=== PATIENT | male | born 1930 | race Caucasian/White ===

== ENCOUNTER → 2017-01-15 | Outpatient (REF) ==
[~2017-01-15] MED LIST: AMOXICILLIN 8751 TAB PO; ASPI325T6 PO; CLEOCIN HC150 MG/CAP PO; COLACE 100100 MG/CAP PO; CYTOMEL 5MC5 MCG/TAB PO; D2 PO; D3-5050000 IU PO; DEPO-TESTOS100 MG/ML IM; ELIQUIS 5MG PO; EXCEDRIN TENSIO1 CAP PO; FLOMAX 0.40.4 MG/CAP PO; LASIX 20MG TABL20 MG PO; LEVAQUIN 5500 MG/TA1 PO; LEVOXYL0.175 MG PO; MULTAQ400 MG PO; MULTI VITAMINS1 TAB PO; NATURAL VITAM1000 MG PO; NORCO 325 MG-51 TAB PO; PRILOSEC 20MG20 MG PO; PYRIDIUM 100MG100 MG PO; SLOW-MAG 106 MG1 ECT PO; SLOW-MAG 6464 MG/TAB PO; SLOW-MAG535 MG PO; SYNTHROID 0.10.15 MG PO; SYNTHROID0.175 MG PO; THE MEDICINE S200 M2 PO; THORAZINE 225 MG/TAB PO; TYLENOL 325MG325 MG PO; TYLENOL ARTHRI650 M1 PO; VITAMIN C500 MG PO; [UNRECOGNIZED DRUG - OTHER] PO; [UNRECOGNIZED DRUG - OTHER] PO
[2017-01-15 12:29] LABS: PSA-TOTAL 2.79 ng/mL (0-4)
== END ==
LOC: ZLAB.WCH 10:31
PROVIDERS: Internal Medicine
DX: Z01.89 Encounter for other specified special examinations (principal)
CPT/HCPCS: G0103

== ENCOUNTER 2017-02-18 23:05 | Inpatient (IN) | payer MEDICARE, BC ==
[~2017-02-18] VITALS: Ht 185.4 cm; Wt 98.3 kg
[~2017-02-18 23:05] MED LIST changes: -AMOXICILLIN 8751 TAB PO; -ASPI325T6 PO; -CLEOCIN HC150 MG/CAP PO; -COLACE 100100 MG/CAP PO; -CYTOMEL 5MC5 MCG/TAB PO; -ELIQUIS 5MG PO; -FLOMAX 0.40.4 MG/CAP PO; -LASIX 20MG TABL20 MG PO; -MULTAQ400 MG PO; -NATURAL VITAM1000 MG PO; -NORCO 325 MG-51 TAB PO; -PYRIDIUM 100MG100 MG PO; -SLOW-MAG 6464 MG/TAB PO; -SYNTHROID 0.10.15 MG PO; -SYNTHROID0.175 MG PO; -THE MEDICINE S200 M2 PO; -THORAZINE 225 MG/TAB PO; -TYLENOL 325MG325 MG PO; -[UNRECOGNIZED DRUG - OTHER] PO; -[UNRECOGNIZED DRUG - OTHER] PO
[2017-02-18] MEDS ORDERED: CYTOMEL 5MC5 MCG/TAB PO (23:14)
[2017-02-18] MEDS ORDERED: SYNTHROID0.175 MG PO (23:14)
[2017-02-18] MEDS ORDERED: SLOW-MAG 6464 MG/TAB PO (23:14)
[2017-02-18 23:25] LABS: BASO # 0.1 (0.0-0.2); BASO % 0.3 % (0.0-2.0); GRAN # 16.1 (1.4-6.5); GRAN % 89.2 % (42.2-75.2); HEMATOCRIT 48.8 % (42.0-52.0); HEMOGLOBIN 16.6 g/dl (13.5-18.0); LYMPH # 0.9 (1.2-3.4); LYMPH % 4.7 % (20.0-51.0); MEAN CELL VOLUME 91 fl (80.0-100.0); MEAN CORPUSCULAR HEMOGLOBIN 31 pg (27.0-31.0); MEAN CORPUSCULAR HGB CONC 34 g/dl (33.0-37.0); MONO % 5.3 % (1.7-9.3); PLATELET COUNT 214 K/mm3 (130-400); RED BLOOD COUNT 5.38 M/mm3 (4.20-5.60); REDCELL DISTRIBUTION WIDTH-CV 13.7 % (11.5-14.5)
[2017-02-18 23:35] LABS: ADJUSTED CALCIUM 8.9 mg/dL (8.4-10.2); ALBUMIN 3.6 gm/dL (3.5-5.0); BILIRUBIN,TOTAL 2.5 mg/dL (0.0-1.0); CALCIUM 8.6 mg/dL (8.4-10.2); CREATININE, serum 0.95 mg/dL (0.66-1.25); POTASSIUM 4.1 mmol/L (3.4-5.0); TOTAL PROTEIN 6.2 gm/dL (6.4-8.2)
[2017-02-19 00:33] LABS: PH 5 (5-8); SQUAMOUS EPITHELIAL None Seen /hpf; URINE APPEARANCE Clear; URINE BACTERIA None Seen /hpf; URINE BILIRUBIN Negative (NEGATIVE); URINE BLOOD 3+ (NEGATIVE); URINE COLOR Amber; URINE GLUCOSE 3+ (NEGATIVE); URINE KETONE 1+ (NEGATIVE); URINE UROBILINOGEN >=4.0 mg/dL (NEGATIVE); URINE WBC 0-2 /hpf
[2017-02-19 03:41] VITALS: BP 122/60; PULSE 93; TEMP 97.8
[2017-02-19 07:22] VITALS: BP 124/57; PULSE 73; TEMP 98.4
[2017-02-19 08:47] LABS: BASO % 0.2 % (0.0-2.0); EOS % 0.2 % (0-4.0); GRAN # 10.2 (1.4-6.5); GRAN % 82.2 % (42.2-75.2); HEMATOCRIT 43.7 % (42.0-52.0); LYMPH # 1.3 (1.2-3.4); LYMPH % 10.6 % (20.0-51.0); MEAN CELL VOLUME 92 fl (80.0-100.0); MEAN CORPUSCULAR HEMOGLOBIN 30 pg (27.0-31.0); MEAN CORPUSCULAR HGB CONC 33 g/dl (33.0-37.0); MEAN PLATELET VOLUME 9.5 fl (7.4-10.4); MONO # 0.8 (0.1-0.6); MONO % 6.2 % (1.7-9.3); PLATELET COUNT 177 K/mm3 (130-400); RED BLOOD COUNT 4.76 M/mm3 (4.20-5.60); REDCELL DISTRIBUTION WIDTH-CV 13.9 % (11.5-14.5); WHITE BLOOD COUNT 12.4 K/mm3 (4.8-10.8)
[2017-02-19 08:49] LABS: HEMOGLOBIN 14.3 g/dl (13.5-18.0)
[2017-02-19 09:05] LABS: CALCIUM 7.6 mg/dL (8.4-10.2); CREATININE, serum 0.83 mg/dL (0.66-1.25); POTASSIUM 3.6 mmol/L (3.4-5.0)
[2017-02-19 12:01] VITALS: BP 103/57; PULSE 72; TEMP 98
[2017-02-19 14:51] VITALS: BP 125/54; PULSE 91; TEMP 98.1
[2017-02-19 19:45] VITALS: BP 125/60; PULSE 87; TEMP 99.2
[2017-02-20] VITALS (7 sets, daily range): BP systolic 124–149; BP diastolic 58–70; PULSE 63–93; TEMP 97.3–98.9
[2017-02-20] MEDS ORDERED: FLOMAX 0.40.4 MG/CAP PO (11:19)
[2017-02-21 03:57] VITALS: BP 134/58; PULSE 75; TEMP 98.3
[2017-02-21 07:08] LABS: BASO % 0.3 % (0.0-2.0); EOS # 0.1 (0.0-0.7); EOS % 0.9 % (0-4.0); GRAN # 8.5 (1.4-6.5); GRAN % 84.4 % (42.2-75.2); HEMATOCRIT 42.5 % (42.0-52.0); HEMOGLOBIN 14.2 g/dl (13.5-18.0); LYMPH # 0.8 (1.2-3.4); LYMPH % 7.6 % (20.0-51.0); MEAN CELL VOLUME 92 fl (80.0-100.0); MEAN CORPUSCULAR HEMOGLOBIN 31 pg (27.0-31.0); MEAN CORPUSCULAR HGB CONC 33 g/dl (33.0-37.0); MEAN PLATELET VOLUME 9.8 fl (7.4-10.4); MONO # 0.6 (0.1-0.6); MONO % 5.8 % (1.7-9.3); PLATELET COUNT 195 K/mm3 (130-400); RED BLOOD COUNT 4.62 M/mm3 (4.20-5.60); REDCELL DISTRIBUTION WIDTH-CV 13.8 % (11.5-14.5); WHITE BLOOD COUNT 10.1 K/mm3 (4.8-10.8)
[2017-02-21 07:41] VITALS: BP 153/70; PULSE 86; TEMP 97.9
[2017-02-21] MEDS ORDERED: ELIQUIS 5MG PO (10:07)
[2017-02-21] MEDS ORDERED: CLEOCIN HC150 MG/CAP PO (10:08)
[2017-02-21] MEDS ORDERED: TYLENOL 325MG325 MG PO (10:09)
[2017-02-21] MEDS ORDERED: LASIX 20MG TABL20 MG PO (10:36)
[2017-02-21] MEDS ORDERED: THORAZINE 225 MG/TAB PO (10:42)
[2017-02-21] MEDS ORDERED: AMOXICILLIN 8751 TAB PO (11:17)
[2017-02-21 11:18] LABS: CALCIUM 7.8 mg/dL (8.4-10.2); CREATININE, serum 0.84 mg/dL (0.66-1.25); POTASSIUM 3.4 mmol/L (3.4-5.0)
[2017-02-21] MEDS ORDERED: MULTAQ400 MG PO (11:25)
[2017-02-21] MEDS ORDERED: SYNTHROID 0.10.15 MG PO (11:26)
[2017-02-21 12:11] VITALS: BP 120/61; PULSE 69; TEMP 98.6
== END 2017-02-21 14:10 | DRG 178 ==
LOC: COL.ER 23:05 → MEDICAL 02-19 01:51
PROVIDERS: Emergency Medicine; Nurse Practitioner Family
DX: J69.0 Pneumonitis due to inhalation of food and vomit (principal); I48.4 Atypical atrial flutter; E03.9 Hypothyroidism, unspecified; Z66 Do not resuscitate; R06.6 Hiccough; J37.0 Chronic laryngitis
CPT/HCPCS: 99223-AI; 99233-AI; 99239; J1650; J1940; J2405; J2543; J3370; J7030; J7050

== ENCOUNTER 2017-02-21 13:29 | Inpatient (IN) | payer MEDICARE, BC ==
[~2017-02-21] VITALS: Ht 185.4 cm; Wt 90.9 kg
[~2017-02-21 13:29] MED LIST changes: +AMOXICILLIN 8751 TAB PO; +CLEOCIN HC150 MG/CAP PO; +CYTOMEL 5MC5 MCG/TAB PO; +ELIQUIS 5MG PO; +FLOMAX 0.40.4 MG/CAP PO; +LASIX 20MG TABL20 MG PO; +MULTAQ400 MG PO; +SLOW-MAG 6464 MG/TAB PO; +SYNTHROID 0.10.15 MG PO; +SYNTHROID0.175 MG PO; +THORAZINE 225 MG/TAB PO; +TYLENOL 325MG325 MG PO
[2017-02-21 14:42] VITALS: BP 139/58; PULSE 105; TEMP 97
[2017-02-21 18:00] VITALS: BP 147/69; PULSE 109; TEMP 97.9
[2017-02-22 04:08] VITALS: BP 134/62; PULSE 86; TEMP 98
[2017-02-22 17:11] VITALS: BP 138/57; PULSE 91; TEMP 98.7
[2017-02-23 04:26] VITALS: BP 145/69; PULSE 76; TEMP 97.8
[2017-02-23 15:42] VITALS: BP 137/67; PULSE 76; TEMP 99
[2017-02-24 05:12] VITALS: BP 149/68; PULSE 71; TEMP 98.3
[2017-02-24 16:03] VITALS: BP 135/57; PULSE 74; TEMP 98.5
[2017-02-25 04:38] VITALS: BP 136/58; PULSE 62; TEMP 97.9
[2017-02-25 16:34] VITALS: BP 132/58; PULSE 76; TEMP 97.9
[2017-02-26 05:35] VITALS: BP 141/68; PULSE 70; TEMP 98.5
[2017-02-26 16:48] VITALS: BP 136/57; PULSE 66; TEMP 98.2
[2017-02-27 04:39] VITALS: BP 132/65; PULSE 58; TEMP 97.9
[2017-02-27 18:21] VITALS: BP 142/59; PULSE 63; TEMP 98.2
[2017-02-28 04:44] VITALS: BP 143/60; PULSE 64; TEMP 97
[2017-02-28 18:10] VITALS: BP 134/65; PULSE 69; TEMP 97.9
[2017-03-01 03:53] VITALS: BP 144/59; PULSE 61; TEMP 98.1
[2017-03-01 17:13] VITALS: BP 148/53; PULSE 68; TEMP 97.6
[2017-03-02 04:57] VITALS: BP 136/59; PULSE 60; TEMP 97.6
[2017-03-02 16:56] VITALS: BP 139/66; PULSE 66; TEMP 97.6
[2017-03-03 04:31] VITALS: BP 132/66; PULSE 60; TEMP 97.6
[2017-03-03 17:52] VITALS: BP 135/66; PULSE 60; TEMP 98.2
[2017-03-04 05:57] VITALS: BP 132/65; PULSE 60; TEMP 98.4
[2017-03-04 18:00] VITALS: BP 143/59; PULSE 80; TEMP 97.8
[2017-03-05 05:10] VITALS: BP 128/63; PULSE 74; TEMP 97.7
== END 2017-03-05 14:23 | disposition home or self-care (01) | DRG 947 ==
DX: R53.81 Other malaise (principal); J18.9 Pneumonia, unspecified organism; K21.9 Gastro-esophageal reflux disease without esophagitis; I48.91 Unspecified atrial fibrillation; Z79.01 Long term (current) use of anticoagulants
CPT/HCPCS: 99222-AI; 99232-AI; 99239

== ENCOUNTER 2017-05-29 11:15 | Outpatient (RCR) | payer MEDICARE, BC ==
[2017-06-03] MEDS ORDERED: SYNTHROID0.175 MG PO (15:04)
[2017-06-03] MEDS ORDERED: [UNRECOGNIZED DRUG - OTHER] PO (15:07)
[2017-06-03] MEDS ORDERED: THE MEDICINE S200 M2 PO (15:08)
[2017-06-03] MEDS ORDERED: NATURAL VITAM1000 MG PO (15:09)
[2017-06-03] MEDS ORDERED: ASPI325T6 PO (15:09)
[2017-06-03] MEDS ORDERED: SLOW-MAG 6464 MG/TAB PO (15:15)
[2017-06-03] MEDS ORDERED: [UNRECOGNIZED DRUG - OTHER] PO (15:18)
[2017-06-03] MEDS ORDERED: CYTOMEL 5MC5 MCG/TAB PO (15:19)
[2017-06-05] MEDS ORDERED: NORCO 325 MG-51 TAB PO (13:09)
[2017-06-05] MEDS ORDERED: PYRIDIUM 100MG100 MG PO (13:10)
[2017-06-05] MEDS ORDERED: COLACE 100100 MG/CAP PO (13:12)
== END 2017-06-04 08:26 | disposition still patient (30) ==
LOC: WSPT 11:15
DX: R53.1 Weakness (principal); J18.9 Pneumonia, unspecified organism; Z74.09 Other reduced mobility
CPT/HCPCS: G8978-GP; G8979-GP

== ENCOUNTER 2017-06-03 13:35 | Day surgery (SDC) | payer MEDICARE, BC ==
[2017-06-03] VITALS (10 sets, daily range): BP systolic 98–135; BP diastolic 55–85; PULSE 74–80; TEMP 97.1–99.2
[~2017-06-03] VITALS: Ht 185.4 cm; Wt 91.1 kg
[2017-06-03] MEDS ORDERED: SYNTHROID0.175 MG PO (15:04)
[2017-06-03] MEDS ORDERED: [UNRECOGNIZED DRUG - OTHER] PO (15:07)
[2017-06-03] MEDS ORDERED: THE MEDICINE S200 M2 PO (15:08)
[2017-06-03] MEDS ORDERED: ASPI325T6 PO (15:09)
[2017-06-03] MEDS ORDERED: NATURAL VITAM1000 MG PO (15:09)
[2017-06-03] MEDS ORDERED: SLOW-MAG 6464 MG/TAB PO (15:15)
[2017-06-03] MEDS ORDERED: [UNRECOGNIZED DRUG - OTHER] PO (15:18)
[2017-06-03] MEDS ORDERED: CYTOMEL 5MC5 MCG/TAB PO (15:19)
[2017-06-04 02:30] VITALS: BP 124/69; PULSE 77; TEMP 98.4
[2017-06-04 05:54] VITALS: BP 118/59; PULSE 76; TEMP 98.4
[2017-06-04 09:44] VITALS: BP 132/70; PULSE 78; TEMP 97.5
[2017-06-04 13:58] VITALS: BP 121/64; PULSE 80; TEMP 98.2
[2017-06-04 18:08] VITALS: BP 113/64; PULSE 79; TEMP 97.3
[2017-06-04 22:10] VITALS: BP 117/64; PULSE 80; TEMP 98.3
[2017-06-05 01:29] VITALS: BP 112/65; PULSE 80; TEMP 98.2
[2017-06-05 05:08] VITALS: BP 119/59; PULSE 79; TEMP 98.8
[2017-06-05 09:11] VITALS: BP 113/64; PULSE 81; TEMP 97.5
[2017-06-05] MEDS ORDERED: NORCO 325 MG-51 TAB PO (13:09)
[2017-06-05] MEDS ORDERED: PYRIDIUM 100MG100 MG PO (13:10)
[2017-06-05] MEDS ORDERED: COLACE 100100 MG/CAP PO (13:12)
== END 2017-06-05 14:02 | disposition home or self-care (01) ==
LOC: SDCO 13:35 → SURG 19:59 → SDCO 06-05 14:02
DX: N40.0 Benign prostatic hyperplasia without lower urinary tract symptoms (principal); N21.0 Calculus in bladder; I48.91 Unspecified atrial fibrillation; K21.9 Gastro-esophageal reflux disease without esophagitis; E03.9 Hypothyroidism, unspecified; M19.90 Unspecified osteoarthritis, unspecified site; J37.0 Chronic laryngitis; Z79.01 Long term (current) use of anticoagulants
CPT/HCPCS: OP; C1769; C1894; J0690; J2250; J2704; J3010; J7120

== ENCOUNTER 2017-07-17 11:15 | Outpatient (RCR) | payer MEDICARE, BC ==
[~2017-07-17 11:15] MED LIST changes: +ASPI325T6 PO; +COLACE 100100 MG/CAP PO; +NATURAL VITAM1000 MG PO; +NORCO 325 MG-51 TAB PO; +PYRIDIUM 100MG100 MG PO; +THE MEDICINE S200 M2 PO; +[UNRECOGNIZED DRUG - OTHER] PO; +[UNRECOGNIZED DRUG - OTHER] PO
== END 2017-07-22 09:08 ==
LOC: WSPT 11:15
DX: R53.1 Weakness (principal)
CPT/HCPCS: G8978-GP; G8979-GP; G8980-GP

== ENCOUNTER 2017-08-23 14:40 | Inpatient (IN) | payer MEDICARE, BC ==
[~2017-08-23] VITALS: Ht 188 cm; Wt 94.0 kg
[~2017-08-23 14:40] MED LIST changes: +AMBIEN 5MG TABLE5 MG PO; +ANTACID500 M1 PO; +B-121000 MCG PO; +DULCOLAX S10 MG/SUPP RC; +FLUOROPLEX1% TP; +MILK OF MA400 MG/52 PO; +ZANTAC 150MG T150 MG PO
[2017-08-24 05:40] VITALS: BP 160/64; PULSE 50; TEMP 98.2
[2017-08-24 16:39] VITALS: BP 136/64; PULSE 52; TEMP 97.3
[2017-08-24 17:07] VITALS: BP 136/64; PULSE 52; TEMP 97.3
[2017-08-25 05:26] VITALS: BP 158/77; PULSE 52; TEMP 97.5
[2017-08-25 16:11] VITALS: BP 139/68; PULSE 65; TEMP 96.8
[2017-08-26 05:23] VITALS: BP 160/77; PULSE 59; TEMP 98.3
[2017-08-26 15:39] VITALS: BP 149/69; PULSE 76; TEMP 97.4
[2017-08-27 06:31] VITALS: BP 151/69; PULSE 57; TEMP 98
[2017-08-27 15:28] VITALS: BP 131/67; PULSE 68; TEMP 97.7
[2017-08-28 06:33] VITALS: BP 145/63; PULSE 60; TEMP 98.1
[2017-08-28 18:21] VITALS: BP 142/78; PULSE 76; TEMP 97.8
[2017-08-29 05:52] VITALS: BP 149/65; PULSE 61; TEMP 97.1
[2017-08-29 15:44] VITALS: BP 133/61; PULSE 72; TEMP 97.4
[2017-08-30 05:40] VITALS: BP 150/61; PULSE 59; TEMP 97.5
[2017-08-30 17:00] VITALS: BP 147/72; PULSE 70; TEMP 97.7
[2017-08-31 06:30] VITALS: BP 136/71; PULSE 77; TEMP 98.2
[2017-08-31 18:09] VITALS: BP 129/64; PULSE 81; TEMP 97.2
[2017-09-01 06:19] VITALS: BP 125/62; BP 148/73; PULSE 73; PULSE 89; TEMP 96; TEMP 97.5
[2017-09-01 15:28] VITALS: BP 139/66; PULSE 84; TEMP 97.6
[2017-09-02 06:00] VITALS: BP 146/72; PULSE 62; TEMP 97.5
[2017-09-02] MEDS ORDERED: EPA FISH OIL1 SGL PO (08:31)
== END 2017-09-02 12:45 | disposition home or self-care (01) | DRG 948 ==
DX: R53.81 Other malaise (principal); G61.81 Chronic inflammatory demyelinating polyneuritis; E87.1 Hypo-osmolality and hyponatremia; E87.2 Acidosis; R00.1 Bradycardia, unspecified
CPT/HCPCS: 99222-AI; 99232-AI; 99239; J1650

== ENCOUNTER → 2017-09-23 | Outpatient (REF) ==
[~2017-09-23] MED LIST changes: +CURCUMIN95% PO; +EPA FISH OIL1 SGL PO; +EXCEDRIN1 TAB PO; +OMEGA-31 SGL PO; +PEPCID 20MG TAB20 MG PO
== END ==
LOC: ZLAB.WCH 18:13
DX: Z01.89 Encounter for other specified special examinations (principal)

== ENCOUNTER 2017-09-24 09:21 | Outpatient (CLI) | payer MEDICARE, BC ==
[~2017-09-24] VITALS: Ht 188 cm; Wt 95.0 kg
[2017-09-24] VITALS (14 sets, daily range): BP systolic 123–147; BP diastolic 55–80; PULSE 60–85; TEMP 97.5–98.3
[~2017-09-24 09:21] MED LIST changes: -CURCUMIN95% PO; -EXCEDRIN1 TAB PO; -OMEGA-31 SGL PO; -PEPCID 20MG TAB20 MG PO
[2017-09-24] MEDS ORDERED: OMEGA-31 SGL PO (09:56)
[2017-09-24] MEDS ORDERED: CURCUMIN95% PO (09:57)
[2017-09-24] MEDS ORDERED: COLACE 100100 MG/CAP PO (09:58)
[2017-09-24] MEDS ORDERED: PEPCID 20MG TAB20 MG PO (10:00)
[2017-09-24] MEDS ORDERED: THORAZINE 225 MG/TAB PO (10:01)
[2017-09-24] MEDS ORDERED: B-121000 MCG PO (10:02)
[2017-09-24] MEDS ORDERED: ASPI325T6 PO (10:04)
[2017-09-24] MEDS ORDERED: EXCEDRIN1 TAB PO (10:04)
== END 2017-09-24 16:49 | disposition home or self-care (01) ==
LOC: EUO 09:21
DX: G61.81 Chronic inflammatory demyelinating polyneuritis (principal); Z79.899 Other long term (current) drug therapy
CPT/HCPCS: J1200; J1459; J1569; J2930

== ENCOUNTER 2017-10-16 14:15 | Outpatient (RCR) | payer MEDICARE, BC ==
[~2017-10-16 14:15] MED LIST changes: +CURCUMIN95% PO; +EXCEDRIN1 TAB PO; +OMEGA-31 SGL PO; +PEPCID 20MG TAB20 MG PO
== END 2017-10-17 15:10 | disposition home or self-care (01) ==
LOC: WSPT 14:15
DX: G62.9 Polyneuropathy, unspecified (principal); R53.1 Weakness
CPT/HCPCS: G8978-GP; G8979-GP; G8980-GP

== ENCOUNTER → 2017-10-17 | Outpatient (REF) | LOC: ZLAB.WCH 19:13 | PROVIDERS: Internal Medicine | DX: Z01.89 Encounter for other specified special examinations (principal) ==

== ENCOUNTER 2017-10-29 09:22 | Outpatient (CLI) | payer MEDICARE, BC ==
[2017-10-29] VITALS (14 sets, daily range): BP systolic 109–149; BP diastolic 57–82; PULSE 64–90; TEMP 97.5–98.5
[~2017-10-29] VITALS: Ht 188 cm; Wt 93.0 kg
== END 2017-10-29 16:40 | disposition home or self-care (01) ==
LOC: EUO 09:22
DX: G61.81 Chronic inflammatory demyelinating polyneuritis (principal); Z79.899 Other long term (current) drug therapy
CPT/HCPCS: J1200; J1569; J2930

== ENCOUNTER 2017-11-26 09:38 | Outpatient (CLI) | payer MEDICARE, BC ==
[2017-11-26] VITALS (13 sets, daily range): BP systolic 120–152; BP diastolic 67–104; PULSE 61–89; TEMP 97.6–98.4
[~2017-11-26] VITALS: Ht 188 cm; Wt 97.0 kg
== END 2017-11-26 16:27 | disposition home or self-care (01) ==
LOC: EUO 09:38
DX: G61.81 Chronic inflammatory demyelinating polyneuritis (principal); Z79.899 Other long term (current) drug therapy
CPT/HCPCS: J1200; J1569; J2930

== ENCOUNTER → 2018-01-29 | Outpatient (REF) ==
[~2018-01-29] MED LIST changes: +CEPHALEXIN500 M1 PO; +DEPO-TESTOS200 MG/M1 IM; +EFUDEX TOP; +TOPROL XL 50MG50 MG PO
== END ==
LOC: ZLAB.WCH 14:13
PROVIDERS: Internal Medicine
DX: Z01.89 Encounter for other specified special examinations (principal)

== ENCOUNTER 2018-02-13 00:48 | Observation (INO) | payer MEDICARE, BC ==
[~2018-02-13] VITALS: Ht 188 cm; Wt 91.8 kg
[2018-02-13 01:30] LABS: BASO # 0.1 (0.0-0.2); BASO % 0.4 % (0.0-2.0); EOS # 0.1 (0.0-0.7); EOS % 0.6 % (0-4.0); GRAN # 12.5 (1.4-6.5); GRAN % 80.5 % (42.2-75.2); HEMATOCRIT 50.5 % (42.0-52.0); HEMOGLOBIN 16.9 g/dl (13.5-18.0); LYMPH # 1.7 (1.2-3.4); MEAN CELL VOLUME 84 fl (80.0-100.0); MEAN CORPUSCULAR HEMOGLOBIN 28 pg (27.0-31.0); MEAN CORPUSCULAR HGB CONC 34 g/dl (33.0-37.0); MEAN PLATELET VOLUME 9.2 fl (7.4-10.4); MONO # 1.1 (0.1-0.6); MONO % 6.9 % (1.7-9.3); PLATELET COUNT 263 K/mm3 (130-400); RED BLOOD COUNT 5.99 M/mm3 (4.20-5.60); REDCELL DISTRIBUTION WIDTH-CV 15.4 % (11.5-14.5)
[2018-02-13 01:38] LABS: INR 1.2 (0.8-3.0); PROTHROMBIN TIME 13.8 SECONDS (9.7-12.8)
[2018-02-13 01:42] LABS: ALANINE AMINOTRANSFERASE 38 U/L (21-72); ALKALINE PHOSPHATASE 88 U/L (50-136); ANION GAP 14 mmol/L (7-16); AST,SGOT 31 U/L (15-37); BILIRUBIN,TOTAL 0.9 mg/dL (0.0-1.0); BLOOD UREA NITROGEN 32 mg/dL (9-20); CALCIUM 9.3 mg/dL (8.4-10.2); CARBON DIOXIDE 20 mmol/L (22-30); CHLORIDE 103 mmol/L (98-107); CREATININE, serum 1.25 mg/dL (0.66-1.25); GLUCOSE 150 mg/dL (74-106); POTASSIUM 4.3 mmol/L (3.4-5.0); SODIUM 138 mmol/L (137-145); TOTAL PROTEIN 7.5 gm/dL (6.4-8.2)
[2018-02-13 01:53] LABS: TROPONIN-I < 0.012 ng/mL (0.000-0.034)
[2018-02-13 02:23] LABS: COLLECTION METHOD CATHETER
[2018-02-13 02:28] LABS: MUCOUS Present /lpf; PH 5 (5-8); SQUAMOUS EPITHELIAL None Seen /hpf; URINE APPEARANCE Hazy; URINE BACTERIA None Seen /hpf; URINE BILIRUBIN Negative (NEGATIVE); URINE BLOOD Negative (NEGATIVE); URINE COLOR Amber; URINE GLUCOSE 1+ (NEGATIVE); URINE KETONE Trace (NEGATIVE); URINE LEUKOCYTE ESTERASE Negative (NEGATIVE); URINE NITRATE Negative (NEGATIVE); URINE PROTEIN(semi-quant) 1+ (NEGATIVE); URINE RBC 0-2 /hpf
[2018-02-13 03:44] VITALS: BP 107/74; PULSE 70; TEMP 98.1
[2018-02-13 07:26] VITALS: BP 139/64; PULSE 61; TEMP 97.4
[2018-02-13 08:00] VITALS: BP 139/64; PULSE 85; TEMP 98.5
[2018-02-13 11:45] VITALS: BP 116/60; PULSE 90; TEMP 97.5
[2018-02-13 13:45] LABS: BASO # 0.1 (0.0-0.2); BASO % 0.4 % (0.0-2.0); EOS # 0.1 (0.0-0.7); EOS % 1.1 % (0-4.0); GRAN # 8.2 (1.4-6.5); GRAN % 72.8 % (42.2-75.2); HEMATOCRIT 45.4 % (42.0-52.0); HEMOGLOBIN 15.2 g/dl (13.5-18.0); LYMPH # 2.1 (1.2-3.4); LYMPH % 18.4 % (20.0-51.0); MEAN CELL VOLUME 85 fl (80.0-100.0); MEAN CORPUSCULAR HEMOGLOBIN 29 pg (27.0-31.0); MEAN CORPUSCULAR HGB CONC 34 g/dl (33.0-37.0); MEAN PLATELET VOLUME 9.2 fl (7.4-10.4); MONO # 0.8 (0.1-0.6); MONO % 6.9 % (1.7-9.3); PLATELET COUNT 230 K/mm3 (130-400); RED BLOOD COUNT 5.34 M/mm3 (4.20-5.60); REDCELL DISTRIBUTION WIDTH-CV 15.3 % (11.5-14.5)
[2018-02-13] MEDS ORDERED: ELIQUIS 5MG PO (14:54)
[2018-02-13 15:24] VITALS: BP 106/60; PULSE 70; TEMP 97.5
[2018-02-13 20:13] VITALS: BP 102/58; PULSE 75; TEMP 97.8
[2018-02-14 00:14] VITALS: BP 102/68; PULSE 71; TEMP 97.5
[2018-02-14 03:46] VITALS: BP 112/67; PULSE 70; TEMP 98.9
[2018-02-14 06:15] LABS: BASO # 0.1 (0.0-0.2); BASO % 0.6 % (0.0-2.0); EOS # 0.2 (0.0-0.7); EOS % 1.8 % (0-4.0); GRAN # 7.2 (1.4-6.5); GRAN % 69.3 % (42.2-75.2); HEMATOCRIT 48.2 % (42.0-52.0); HEMOGLOBIN 15.7 g/dl (13.5-18.0); LYMPH # 2.1 (1.2-3.4); LYMPH % 20.2 % (20.0-51.0); MEAN CELL VOLUME 87 fl (80.0-100.0); MEAN CORPUSCULAR HEMOGLOBIN 28 pg (27.0-31.0); MEAN CORPUSCULAR HGB CONC 33 g/dl (33.0-37.0); MEAN PLATELET VOLUME 9.7 fl (7.4-10.4); MONO # 0.8 (0.1-0.6); MONO % 7.6 % (1.7-9.3); PLATELET COUNT 231 K/mm3 (130-400); RED BLOOD COUNT 5.55 M/mm3 (4.20-5.60); REDCELL DISTRIBUTION WIDTH-CV 15.8 % (11.5-14.5)
[2018-02-14 06:23] LABS: CALCIUM 8.6 mg/dL (8.4-10.2); CREATININE, serum 0.95 mg/dL (0.66-1.25); POTASSIUM 4.1 mmol/L (3.4-5.0)
[2018-02-14 07:52] VITALS: BP 112/67; PULSE 60; TEMP 98.2
[2018-02-14 11:45] VITALS: BP 110/64; PULSE 74; TEMP 97.5
== END 2018-02-14 14:58 | disposition home health service (06) ==
LOC: COL.ER 00:48 → SURG 02:53
PROVIDERS: Emergency Medicine; Nurse Practitioner; Nurse Practitioner Family
DX: I48.92 Unspecified atrial flutter (principal); E03.9 Hypothyroidism, unspecified; I10 Essential (primary) hypertension; E78.5 Hyperlipidemia, unspecified; G61.81 Chronic inflammatory demyelinating polyneuritis; D72.829 Elevated white blood cell count, unspecified; R53.81 Other malaise; K21.9 Gastro-esophageal reflux disease without esophagitis; Z95.0 Presence of cardiac pacemaker; Z85.828 Personal history of other malignant neoplasm of skin; Z79.899 Other long term (current) drug therapy; Z79.01 Long term (current) use of anticoagulants; Z80.3 Family history of malignant neoplasm of breast; Z83.3 Family history of diabetes mellitus; Z80.0 Family history of malignant neoplasm of digestive organs; Z82.3 Family history of stroke; Z82.49 Family history of ischemic heart disease and other diseases of the circulatory system
CPT/HCPCS: 99223-AI; G0378; G8978-GP; G8979-GP; G8987-GO; G8988-GO; J0696; J1650; J7030

== ENCOUNTER → 2018-05-07 | Outpatient (REF) | LOC: ZLAB.WCH 14:27 | PROVIDERS: Internal Medicine | DX: Z01.89 Encounter for other specified special examinations (principal) ==

== ENCOUNTER → 2018-08-21 | Outpatient (REF) ==
[2018-08-21 16:47] LABS: THYROID STIMULATING HORMONE 1.17 uIU/mL (0.465-4.680)
== END ==
LOC: ZLAB.WCH 15:53
PROVIDERS: Internal Medicine
DX: Z01.89 Encounter for other specified special examinations (principal)

== ENCOUNTER → 2018-10-16 | Outpatient (REF) ==
[2018-10-16 16:13] LABS: IRON,SERUM 65 ug/dL (35-150)
[2018-10-16 16:22] LABS: TOTAL IRON BINDING CAPACITY 429 ug/dL (261-462)
[2018-10-16 16:48] LABS: FERRITIN 15 ng/mL (18-464)
== END ==
LOC: ZLAB.WCH 15:56
PROVIDERS: Internal Medicine
DX: Z01.89 Encounter for other specified special examinations (principal)

== ENCOUNTER → 2018-10-23 | Outpatient (REF) ==
[2018-10-23 13:56] LABS: BASO % 0.4 % (0.0-2.0); EOS % 0.3 % (0-4.0); GRAN # 5.1 (1.4-6.5); GRAN % 71.6 % (42.2-75.2); HEMATOCRIT 50.5 % (42.0-52.0); HEMOGLOBIN 16.2 g/dl (13.5-18.0); LYMPH # 1.1 (1.2-3.4); LYMPH % 15.2 % (20.0-51.0); MEAN CELL VOLUME 85 fl (80.0-100.0); MEAN CORPUSCULAR HEMOGLOBIN 27 pg (27.0-31.0); MEAN CORPUSCULAR HGB CONC 32 g/dl (33.0-37.0); MEAN PLATELET VOLUME 9.6 fl (7.4-10.4); MONO # 0.9 (0.1-0.6); MONO % 12.1 % (1.7-9.3); PLATELET COUNT 216 K/mm3 (130-400); RED BLOOD COUNT 5.97 M/mm3 (4.20-5.60); REDCELL DISTRIBUTION WIDTH-CV 17.3 % (11.5-14.5)
== END ==
LOC: ZLAB.WCH 13:47
PROVIDERS: Internal Medicine
DX: Z01.89 Encounter for other specified special examinations (principal)

== ENCOUNTER → 2018-10-23 | Outpatient (REF) | LOC: ZLAB.WCH 19:32 | DX: Z01.89 Encounter for other specified special examinations (principal) ==